=== PATIENT | male | born 1975 | race Two or more races ===

== ENCOUNTER 2024-08-21 09:54 | Emergency (ER) | payer OTHER ==
[~2024-08-21] VITALS: Ht 188 cm; Wt 113.4 kg
[2024-08-21] MEDS ORDERED: LIDO30AD10 TP (11:56)
[2024-08-21] MEDS ORDERED: CYCL5TAB PO (11:56)
[2024-08-21] MEDS ORDERED: IBUP-1955 PO (11:56)
[2024-08-21 13:25] VITALS: BP 135/72; TEMP 98; O2SAT 99
== END 2024-08-21 13:42 | disposition home or self-care (01) ==
LOC: ER 10:13
DX: S16.1XXA Strain of muscle, fascia and tendon at neck level, initial encounter (principal); S20.211A Contusion of right front wall of thorax, initial encounter; S09.8XXA Other specified injuries of head, initial encounter; R51.9 Headache, unspecified; Z79.899 Other long term (current) drug therapy; V89.2XXA Person injured in unspecified motor-vehicle accident, traffic, initial encounter; Y93.89 Activity, other specified; Y92.89 Other specified places as the place of occurrence of the external cause; Y99.8 Other external cause status
CPT/HCPCS: 70450-TC; 70486-TC; 71100-TC; 72125-TC